=== PATIENT | male | born 1990 | race Hispanic/Latino ===

== ENCOUNTER 2019-12-23 06:38 | Emergency (ER) | payer SELFPAY ==
[2019-12-23] MEDS ORDERED: MORPHINE 4 MG/ML SYR ONE ×3 (07:10→09:34)
[2019-12-23] MEDS ORDERED: NA CHLORIDE 0.9% 50 ML IV ONE (07:10)
[2019-12-23] MEDS ORDERED: PROMETHAZINE INJ 25 MG/ML AMP ONE (07:10)
[2019-12-23] MEDS ORDERED: NA CHLORIDE 0.9% 1,000 ML ONE (07:31)
[2019-12-23] MEDS ORDERED: DIAZEPAM 10 MG/2 ML INJ SYRINGE ONE (07:37)
[2019-12-23] MEDS ORDERED: LIDOCAINE 1% W/EPI 1:100,000 MDV 50 ML VIAL ONE (07:42)
[2019-12-23] MEDS ORDERED: PIPER/TAZO/NS 3.375gm 3.375 GM/100 ML BAG ONE (08:00)
[2019-12-23] MEDS ORDERED: VANCOMYCIN 1.5 GM in NA CHLORIDE 0.9% 500 ML IVPB ONE (08:00)
--- NOTE | 2019-12-23 08:20 | RAD REPORT ---
EXAM DESCRIPTION: Carlotta Weber Left12/23/2019 7:54 am CLINICAL HISTORY: Left leg pain status post injury FINDINGS: Mildly to moderately displaced fracture involves mid tibia
--- NOTE | 2019-12-23 08:22 | EDPHYS ---
Physician Documentation [facility] Name: Rosalio Gan Age: 29 yrs Sex: Male : 1990 Arrival Date: 12/23/2019 Time: 06:38 Bed 6 Private MD: ED Physician Darwin Lala HPI: 12/22 07:05 This 29 yrs old Male presents to ER via Wheelchair with complaints of Barba snw Injury. 07:05 Associated signs and symptoms: Pertinent positives:. snw 07:06 The patient presents with decreased range of motion, an injury, pain, a puncture wound, snw hook. The complaints affect the left barba. Onset: The symptoms/episode began/occurred suddenly, just prior to arrival. Associated signs and symptoms: The patient has no apparent associated signs or symptoms. Severity of symptoms: At their worst the symptoms were severe. The patient has not experienced similar symptoms in the past. It is unknown whether or not the patient has recently seen a physician. tetanus immunization up to date. Historical: - Allergies: 06:50 No Known Allergies; mt2 - PMHx: 06:50 None; mt2 - Immunization history:: Adult Immunizations up to date, Last tetanus immunization: up to date. - Social history:: Smoking status: Patient denies any tobacco usage or history of. ROS: 07:04 Constitutional: Negative for fever, chills, and weight loss, Eyes: Negative for injury, snw pain, redness, and discharge, ENT: Negative for injury, pain, and discharge, Neck: Negative for injury, pain, and swelling, Cardiovascular: Negative for chest pain, palpitations, and edema, Respiratory: Negative for shortness of breath, cough, wheezing, and pleuritic chest pain, Abdomen/GI: Negative for abdominal pain, nausea, vomiting, diarrhea, and constipation, Back: Negative for injury and pain, : Negative for injury, bleeding, discharge, and swelling, Skin: Negative for rash and discoloration, + hook struck pt in left barba and pt sustained deep puncture wound with brisk bleeding Neuro: Negative for headache, weakness, numbness, tingling, and seizure. 07:04 MS/extremity: Positive for injury or acute deformity, decreased range of motion, pain, of the left barba. Exam: 07:03 Head/Face: Normocephalic, atraumatic. Eyes: Pupils equal round and reactive to light, snw extra-ocular motions intact. Lids and lashes normal. Conjunctiva and sclera are non-icteric and not injected. Cornea within normal limits. Periorbital areas with no swelling, redness, or edema. ENT: Nares patent. No nasal discharge, no septal abnormalities noted. Tympanic membranes are normal and external auditory canals are clear. Oropharynx with no redness, swelling, or masses, exudates, or evidence of obstruction, uvula midline. Mucous membranes moist. Neck: Trachea midline, no thyromegaly or masses palpated, and no cervical lymphadenopathy. Supple, full range of motion without nuchal rigidity, or vertebral point tenderness. No Meningismus. Chest/axilla: Normal chest wall appearance and motion. Nontender with no deformity. No lesions are appreciated. Cardiovascular: Regular rate and rhythm with a normal S1 and S2. No gallops, murmurs, or rubs. Normal PMI, no JVD. No pulse deficits. Respiratory: Lungs have equal breath sounds bilaterally, clear to auscultation and percussion. No rales, rhonchi or wheezes noted. No increased work of breathing, no retractions or nasal flaring. Abdomen/GI: Soft, non-tender, with normal bowel sounds. No distension or tympany. No guarding or rebound. No evidence of tenderness throughout. Back: No spinal tenderness. No costovertebral tenderness. Full range of motion. Neuro: Awake and alert, GCS 15, oriented to person, place, time, and situation. Cranial nerves II-XII grossly intact. Motor strength 5/5 in all extremities. Sensory grossly intact. Cerebellar exam normal. Normal gait. 07:03 Constitutional: The patient appears alert, awake, anxious, uncomfortable. 07:03 Skin: Appearance: normal except for affected area, injury, puncture(s), that are deep, of the left barba. 07:03 Psych: Behavior/mood is anxious, Affect is animated, Oriented to person, place, time, Patient has no thoughts/intents to harm self or others. Vital Signs: 06:48 BP 140 / 73; Pulse 94; Resp 24; Temp 98.0(O); Pulse Ox 99% on R/A; Pain 10/10; mt2 07:58 BP 107 / 83; Pulse 59; Resp 23; Pulse Ox 99% ; jl7 09:00 BP 110 / 83; Pulse 55; Resp 16; Pulse Ox 98% ; 7 MDM: 06:47 Patient medically screened. snw 08:22 Data reviewed: vital signs, nurses notes. Data interpreted: Pulse oximetry: on room air snw is 99 %. Interpretation: normal. Counseling: I had a detailed discussion with the patient and/or guardian regarding: the historical points, exam findings, and any diagnostic results supporting the discharge/admit diagnosis, the presence of at least one elevated blood pressure reading (>120/80) during this emergency department visit, lab results, radiology results, the need to transfer to another facility, [facility] does not immediately have the required specialist. Physician consultation: Dr Huerta was called at 08:23, regarding regarding transfer, to [facility]. Dr. Huerta kindly accepts pt in transfer without consult. Special discussion:. 12/22 06:47 Order name: Tib Fib Left XRAY; Complete Time: 08:24 snw 12/22 06:47 Order name: Wound Care; Complete Time: 09:21 snw 12/22 07:46 Order name: Transfer - Initiate; Complete Time: 09:19 snw 12/22 07:46 Order name: NPO; Complete Time: 07:47 snw Administered Medications: 07:15 Drug: morphine 4 mg Route: IVP; Site: right antecubital; mt2 07:30 Follow up: Response: No adverse reaction; Pain is unchanged, physician notified 07:15 Drug: Phenergan 6.25 mg Route: IVP; Site: right antecubital; mt2 08:00 Follow up: Response: No adverse reaction 07:24 Drug: NS 0.9% 1000 ml Route: IV; Rate: 1 bolus; Site: right antecubital; jl7 09:00 Follow up: Response: No adverse reaction; IV Status: Completed infusion; IV Intake: jl7 1000ml 07:30 Drug: Valium 5 mg Route: IVP; Site: right antecubital; jl7 08:30 Follow up: Response: No adverse reaction 7 07:50 Drug: Zosyn 3.375 grams Route: IVPB; Infused Over: 60 mins; Site: right antecubital; 7 08:50 Follow up: Response: No adverse reaction; IV Status: Completed infusion jl7 07:59 Not Given (Physician Discretion): Lidocaine-Epinephrine -2 % (1:100,000) 10 ml jl7 Infiltration once; to bedside 08:08 Drug: morphine 4 mg Route: IVP; Site: right antecubital; jl7 09:19 Follow up: Response: No adverse reaction; Pain is decreased jl7 09:00 Drug: vancoMYCIN 1.5 grams Route: IVPB; Rate: calculated rate; Site: right antecubital; jl7 09:21 Follow up: IV Status: Infusion continued upon transfer jl7 Disposition: 12/23/19 08:22 Transfer ordered to [facility]. Diagnosis is Open transverse tibia fracture. - Reason for transfer: Higher level of care. - Accepting physician is Dr. Huerta. - Condition is Stable. - Problem is new. - Symptoms are unchanged. Signatures: Dispatcher [employer] EDMS Dotty Dickerson, KIMBERLY-C SENIOR RECRUITER-Csnw Abby Rodriguez RN RN jl7 aZinab Retana RN RN mt2 Corrections: (The following items were deleted from the chart) 07:44 07:05 This 29 yrs old Male presents to ER via Wheelchair with complaints of snw Sheen Injury. snw 10:00 08:22 12/23/2019 08:22 Transfer ordered to [facility]. Diagnosis is Open jl7 transverse tibia fracture. Reason for transfer: Higher level of care. Accepting physician is Dr. Huerta. Condition is Stable. Problem is new. Symptoms are unchanged. snw
--- NOTE | 2019-12-23 08:22 | ER ---
Nurse's Notes [facility] Name: Rosalio Gan Age: 29 yrs Sex: Male : 1990 Arrival Date: 12/23/2019 Time: 06:38 Bed 6 Private MD: Diagnosis: Open transverse tibia fracture Presentation: 12/22 06:48 Chief complaint: Patient states: WAS STUCK ON BEACH WHEN A TOE-STRAP HOOK IMBEDDED TO mt2 LEFT BATES. SITE BLEEDING. PT AGITATED. Coronavirus screen: At this time, the client does not indicate any symptoms associated with coronavirus-19. Ebola Screen: No symptoms or risks identified at this time. Initial Sepsis Screen: Does the patient meet any 2 criteria? No. Patient's initial sepsis screen is negative. Does the patient have a suspected source of infection? No. Patient's initial sepsis screen is negative. Risk Assessment: Do you want to hurt yourself or someone else? Patient reports no desire to harm self or others. Onset of symptoms was December 23, 2019. 06:48 Method Of Arrival: Wheelchair mt2 06:48 Acuity: BRADLEY 3 iw Historical: - Allergies: 06:50 No Known Allergies; mt2 - PMHx: 06:50 None; mt2 - Immunization history:: Adult Immunizations up to date, Last tetanus immunization: up to date. - Social history:: Smoking status: Patient denies any tobacco usage or history of. Screenin:20 Abuse screen: Denies threats or abuse. Nutritional screening: No deficits noted. mt2 Tuberculosis screening: No symptoms or risk factors identified. Fall Risk None identified. Assessment: 07:21 Reassessment: Patient and/or family updated on plan of care and expected duration. Pain mt2 level reassessed. Patient is alert, oriented x 3, equal unlabored respirations, skin warm/dry/pink. General: Appears distressed, uncomfortable, Behavior is anxious. Pain: Complains of pain in left leg Pain currently is 10 out of 10 on a pain scale. Pain began suddenly. Neuro: No deficits noted. Cardiovascular: No deficits noted. Respiratory: No deficits noted. GI: No deficits noted. : No deficits noted. EENT: No deficits noted. Derm: Wound noted left bates. Musculoskeletal: Reports pain in left bates. Injury Description: Puncture sustained to left bates. 08:00 Reassessment: BRIANNE Storm at bedside discussing results and POC. jl7 09:00 Reassessment: Patient appears in no apparent distress at this time. Patient and/or jl7 family updated on plan of care and expected duration. Pain level reassessed. Patient is alert, oriented x 3, equal unlabored respirations, skin warm/dry/pink. Patient states feeling better. Patient states symptoms have improved. Vital Signs: 06:48 BP 140 / 73; Pulse 94; Resp 24; Temp 98.0(O); Pulse Ox 99% on R/A; Pain 10/10; mt2 07:58 BP 107 / 83; Pulse 59; Resp 23; Pulse Ox 99% ; jl7 09:00 BP 110 / 83; Pulse 55; Resp 16; Pulse Ox 98% ; jl7 ED Course: 06:38 Patient arrived in ED. cl3 06:44 Dotty Dickerson [facility]NP-C [facility]. snw 06:44 Darwin Lala MD is Attending Physician. snw 06:48 Zainab Retana, REGINO is Primary Nurse. mt2 06:48 Arm band placed on right wrist. mt2 06:50 Triage completed. mt2 06:55 Inserted saline lock: 18 gauge in right antecubital area, using aseptic technique. ds4 Blood collected. 07:20 Patient has correct armband on for positive identification. Bed in low position. Call mt2 light in reach. Side rails up X 1. 07:55 Tib Fib Left XRAY In Process Unspecified. EDMS 08:48 initiated transfer to [facility]. pt accepted without consult to [facility] er by dr milo Huerta, admin approval given by Tawana Leon. 09:30 No provider procedures requiring assistance completed. Patient transferred, IV remains jl7 in place. Administered Medications: 07:15 Drug: morphine 4 mg Route: IVP; Site: right antecubital; mt2 07:30 Follow up: Response: No adverse reaction; Pain is unchanged, physician notified jl7 07:15 Drug: Phenergan 6.25 mg Route: IVP; Site: right antecubital; mt2 08:00 Follow up: Response: No adverse reaction jl7 07:24 Drug: NS 0.9% 1000 ml Route: IV; Rate: 1 bolus; Site: right antecubital; jl7 09:00 Follow up: Response: No adverse reaction; IV Status: Completed infusion; IV Intake: jl7 1000ml 07:30 Drug: Valium 5 mg Route: IVP; Site: right antecubital; jl7 08:30 Follow up: Response: No adverse reaction 7 07:50 Drug: Zosyn 3.375 grams Route: IVPB; Infused Over: 60 mins; Site: right antecubital; jl7 08:50 Follow up: Response: No adverse reaction; IV Status: Completed infusion 7 07:59 Not Given (Physician Discretion): Lidocaine-Epinephrine -2 % (1:100,000) 10 ml jl7 Infiltration once; to bedside 08:08 Drug: morphine 4 mg Route: IVP; Site: right antecubital; jl7 09:19 Follow up: Response: No adverse reaction; Pain is decreased 7 09:00 Drug: vancoMYCIN 1.5 grams Route: IVPB; Rate: calculated rate; Site: right antecubital; jl7 09:21 Follow up: IV Status: Infusion continued upon transfer jl7 Intake: 09:00 IV: 1000ml; Total: 1000ml. jl7 Outcome: 08:22 ER care complete, transfer ordered by . snw 09:30 Transferred by ground EMS to [facility], Transfer form completed. 09:30 Condition: stable 09:30 Discharge instructions given to patient, Instructed on the need for transfer, Demonstrated understanding of instructions. 10:00 Patient left the ED. jl7 Signatures: Dispatcher [employer] EDMS Ashley Kwon Shelly, PARKING GARAGE MANAGER-C PARKING GARAGE MANAGER-Csnw Emma Buckner, Jose Elias Campbell RN ds4 Abby Rodriguez RN RN jl7 Caryl Lam cl3 Zainab Retana RN RN mt2 Corrections: (The following items were deleted from the chart) 08:06 06:48 Acuity: BRADLEY 4 mt2 marjan
[2019-12-26 05:29] VITALS: TEMP 98
[2019-12-26 05:32] VITALS: BP 110/83; O2SAT 98
== END 2019-12-23 10:00 | disposition short-term general hospital (02) ==
LOC: ER 06:38
DX: S82.222B Displaced transverse fracture of shaft of left tibia, initial encounter for open fracture type I or II (principal); W22.8XXA Striking against or struck by other objects, initial encounter; Y93.9 Activity, unspecified; Y92.832 Beach as the place of occurrence of the external cause
CPT/HCPCS: 96361; 96365; 96367; 96375; 99285; J2543; J2550; J3360; J3370; J7030; J7040